=== PATIENT | male | born 1985 | race African-American/Black ===

== ENCOUNTER 2018-11-27 15:47 | Emergency (ER) | payer MEDICAID ==
[~2018-11-27] VITALS: Ht 193 cm; Wt 82.0 kg
[2018-11-27 16:24] VITALS: BP 159/72
== END 2018-11-27 20:58 | disposition left against medical advice (07) ==
LOC: ER 15:47
DX: R11.2 Nausea with vomiting, unspecified (principal); Z53.21 Procedure and treatment not carried out due to patient leaving prior to being seen by health care provider